=== PATIENT | male | born 1965 | race Caucasian/White ===

== ENCOUNTER 2016-04-06 05:31 | Emergency (ER) | payer BC, OTHER ==
[2016-04-06 05:48] VITALS: TEMP 98.4; BMI 37.5
[2016-04-06] MEDS ORDERED: OXYCODONE HCL 5 MG TABLET PO ONE (06:14)
--- NOTE | 2016-04-06 06:43 | EDPRACDOC ---
- General Information Chief Complaint: Rib Pain Stated Complaint: COUGH Time Seen by Provider: 04/06/16 06:12 Information Source: Patient Mode of Arrival: Car Home Medications: Home Medications Albuterol Sulfate [Proair Hfa] 2 puff INH Q4 PRN #1 inhaler 04/06/16 Benzonatate [Tessalon Perle] 200 mg PO TID PRN #14 capsule 04/06/16 Hydrocodone/Chlorphen Polis [Tussionex] 5 ml PO BID PRN #60 udc 04/06/16 Oxycodone Immediate Release [Oxycodone Immediate Release (OxyIR)] 5 - 15 mg PO Q4H PRN #30 tab 04/06/16 Allergies/Adverse Reactions: Allergies Allergy/AdvReac Type Severity Reaction Status Date / Time No Known Allergies Allergy Verified 04/06/16 05:48 - History of Present Illness Onset: 45 min HPI: COUGH FOR 2 DAYS, HAD A COUGHING FIT PRIOR TO ARRIVAL. DEVELOPED ABRUPT ONSET SHARP PAIN LEFT LATERAL LOWER RIBS. AGGRAVATED BY MOVEMENT AND DEEP BREATHING ALLEVIATED BY CERTAIN POSITIONS. NO FEVER CHILLS OR OTHER SYSTEMIC SIGNS OF ILLNESS. Chest Wall Injury Location: Reports: Lateral Pain Quality: Reports: Burning, Aching Pain Worsens With: Reports: Breathing, Movement Shortness of Breath: Mild Associated Signs and Symptoms: Reports: None ED Past Medical History - History Reviewed Yes Nurses notes reviewed and agree except as marked - Patient Medical History Psychological History: Denies: Depression Systemic History: Denies: Cancer - Social Medical History Smoking Status: Never smoker ETOH: None Substance Abuse: None Lives With: Family Lives In: Home - Physical Exam Constitutional: Alert, Distress (PAIN), Restless, Other (SITTING VERY STRAIGHT UPRIGHT SPLINTING IN PAIN) Last recorded Vital Signs: Last Vital Signs Temp 98.4 F 04/06/16 05:40 Pulse 99 04/06/16 05:40 Resp 18 04/06/16 05:40 BP 143/83 04/06/16 05:40 Pulse Ox 95 04/06/16 05:40 Oxygen Pulse Oxygen Saturation 95 O2 Device Room Air Oxygen Flow Rate Fraction of Inspired Oxygen ( FIO2) - HEENT Head: Normal Eye Exam: Normal Oropharynx: Normal Nose: No Symptoms Reported Neck: Normal. negative: Edema - Respiratory/Cardiovascular Respiratory: Normal - CTA, Diminished. negative: Accessory Muscle Use, Rhonchi , Tachypnea, Wheezes Cardiovascular: Normal - GI Auscultation: Normal Palpation: Normal Tenderness: Non tender Fletcher's Sign: Negative - Bladder: Normal External: Normal Vagina: Normal Cervix: Normal - Diagnostic Imaging Chest Image interpreted by: Radiologist Patient Name: WALTER PORTILLO JR LOC: ED : 1965 AGE: 50 Order Date:04/06/16 Date of Service: Report # [id number] Ord Physician: Kimmie Watson MD Exam # [id number] Emergency Physician: Kimmie Watson MD Exam(s): [id number] RAD/DG RIBS W/ CHEST 3+V-L CLINICAL DATA: Acute onset of left lower rib pain and cough. EXAM: LEFT RIBS AND CHEST - 3+ VIEW COMPARISON: Left shoulder radiographs performed 01/25/2012 FINDINGS: No displaced rib fractures are seen. The lungs are mildly hypoexpanded, with mild vascular crowding. Mild bibasilar atelectasis is seen. There is no evidence of pleural effusion or pneumothorax. The cardiomediastinal silhouette is within normal limits. No acute osseous abnormalities are seen. IMPRESSION: 1. No displaced rib fracture seen. 2. Mild bibasilar atelectasis noted. Lungs mildly hypoexpanded. Electronically Signed By: Rock García M.D. On: 04/06/2016 06:47 Electronically Signed By: Rock García MD Electronically Signed Date/Time: 650 Dictate Date/Time: 04/06/16 0646 Technologist: Maria Teresa Alvarez Transcribed By: Ministerio Transcribed Date/Time: 04/06/16 0647 - Departure Disposition: Home Condition: Stable Final Diagnosis: Fracture of rib, Bronchitis Instructions: Rib Fracture (ED), Acute Bronchitis (ED) Education/Counseling Given To: Patient, Family Member Education/Counseling Given Regarding: Diagnosis, Treatment, Prognosis Referrals: Verónica Mendes DO [Primary Care Provider] - One Week Prescriptions: Albuterol Sulfate [Proair Hfa] 2 puff INH Q4 PRN #1 inhaler PRN Reason: WHEEZE OR COUGH Benzonatate [Tessalon Perle] 200 mg PO TID PRN #14 capsule PRN Reason: Cough Hydrocodone/Chlorphen Polis [Tussionex] 5 ml PO BID PRN #60 udc PRN Reason: Cough Oxycodone Immediate Release [Oxycodone Immediate Release (OxyIR)] 5 - 15 mg PO Q4H PRN #30 tab PRN Reason: Pain
--- NOTE | 2016-04-06 06:50 | DIRPT ---
CLINICAL DATA: Acute onset of left lower rib pain and cough. EXAM: LEFT RIBS AND CHEST - 3+ VIEW COMPARISON: Left shoulder radiographs performed 01/25/2012 FINDINGS: No displaced rib fractures are seen. The lungs are mildly hypoexpanded, with mild vascular crowding. Mild bibasilar atelectasis is seen. There is no evidence of pleural effusion or pneumothorax. The cardiomediastinal silhouette is within normal limits. No acute osseous abnormalities are seen. IMPRESSION: 1. No displaced rib fracture seen. 2. Mild bibasilar atelectasis noted. Lungs mildly hypoexpanded. Electronically Signed By: Rock García M.D. On: 04/06/2016 06:47
[2016-04-06 08:02] VITALS: BP 165/74; PULSE 68
== END 2016-04-06 08:00 | disposition home or self-care (01) ==
LOC: ED 05:31
DX: S22.39XA Fracture of one rib, unspecified side, initial encounter for closed fracture (principal); X58.XXXA Exposure to other specified factors, initial encounter; Y93.89 Activity, other specified; J40 Bronchitis, not specified as acute or chronic
CPT/HCPCS: 71101; 99283; J3490